=== PATIENT | female | born 1935 | race Caucasian/White ===

== ENCOUNTER 2018-08-29 11:07 | Outpatient (CLI) | payer MEDICARE ==
[~2018-08-29 11:07] MED LIST: FERUMOXYTOL (NON-ESRD) 510 MG/NS 100 ML IV PRN; NORMAL SALINE 250 ML IV PRN
[2018-08-29 11:36] VITALS: BP 132/47
== END 2018-08-29 12:47 | disposition home or self-care (01) ==
LOC: II 11:07 → 5TH 11:10 → II 12:47
PROVIDERS: ATTEND Internal Medicine Hematology & Oncology
PROC: 3E033GC Introduction of Other Therapeutic Substance into Peripheral Vein, Percutaneous Approach (ICD-10-PCS; principal; 2018-08-29)
DX: D50.9 Iron deficiency anemia, unspecified (principal); K90.9 Intestinal malabsorption, unspecified
CPT/HCPCS: 96367; Q0138; 96365

== ENCOUNTER 2018-09-05 10:58 | Outpatient (CLI) | payer MEDICARE ==
[2018-09-05 11:23] VITALS: BP 139/59
== END 2018-09-05 12:06 | disposition home or self-care (01) ==
LOC: II 10:58 → 5TH 10:59 → II 12:06
PROVIDERS: ATTEND Pediatrics Pediatric Cardiology
PROC: 3E033GC Introduction of Other Therapeutic Substance into Peripheral Vein, Percutaneous Approach (ICD-10-PCS; principal; 2018-09-05)
DX: D50.9 Iron deficiency anemia, unspecified (principal); K90.9 Intestinal malabsorption, unspecified
CPT/HCPCS: 96367; Q0138; 96365

== ENCOUNTER 2019-05-30 12:53 | Emergency (ER) | payer MEDICARE ==
[2019-05-30] MEDS ORDERED: ASPIRIN 81 MG TABLET, CHEWABLE PO ONE (14:22)
[2019-05-30 14:34] LABS: ABSOLUTE BASOPHILS # (AUTO) 0.1 10^3/uL (0.0-0.2); ABSOLUTE EOSINOPHILS # (AUTO) 0.2 10^3/uL (0.0-0.6); ABSOLUTE LYMPHOCYTES (AUTO) 1.2 10^3/uL (0.5-4.7); ABSOLUTE MONOCYTES (AUTO) 0.5 10^3/uL (0.1-1.4); ABSOLUTE NEUT (AUTO) 5.1 10^3/uL (1.7-8.2); BASOPHILS % (AUTO) 0.8 % (0-2); EOSINOPHILS % (AUTO) 2.3 % (0-6); HEMATOCRIT 39.7 % (36.0-47.0); HEMOGLOBIN 13.4 g/dL (12.0-15.5); LYMPHOCYTES % (AUTO) 17.2 % (13-45); MEAN CORPUSCULAR HEMOGLOBIN 29.5 pg (27.0-33.4); MEAN CORPUSCULAR HGB CONC 33.7 g/dL (32.0-36.0); MEAN CORPUSCULAR VOLUME 88 fl (80-97); MONOCYTES % (AUTO) 7.5 % (3-13); PLATELET COUNT 268 10^3/uL (150-450); RED BLOOD COUNT 4.54 10^6/uL (3.72-5.28); RED CELL DISTRIBUTION WIDTH 13.9 % (11.5-14.0); SEGMENTED NEUTROPHILS % (AUTO) 72.2 % (42-78); TOTAL CELLS COUNTED % (AUTO) 100 %
[2019-05-30] MEDS ORDERED: CLONAZEPAM 1 MG TABLET PO ONE (14:47)
[2019-05-30] MEDS ORDERED: DILTIAZEM HCL 90 MG TABLET PO ONE (14:48)
[2019-05-30 14:57] LABS: ALANINE AMINOTRANSFERASE 19 U/L (9-52); ALBUMIN 4.2 g/dL (3.5-5.0); ALKALINE PHOSPHATASE 67 U/L (38-126); ANION GAP 8 (5-19); ASPARTATE AMINO TRANSFERASE 32 U/L (14-36); BILIRUBIN,DIRECT 0.3 mg/dL (0.0-0.4); BILIRUBIN,TOTAL 0.3 mg/dL (0.2-1.3); BLOOD UREA NITROGEN 13 mg/dL (7-20); CALCIUM 9.1 mg/dL (8.4-10.2); CARBON DIOXIDE 26 mmol/L (22-30); CHLORIDE 102 mmol/L (98-107); CREATINE KINASE 168 U/L (30-135); GLUCOSE 91 mg/dL (75-110); POTASSIUM 4.7 mmol/L (3.6-5.0); TOTAL PROTEIN 7.1 g/dL (6.3-8.2)
[2019-05-30 15:05] LABS: INTERNATIONAL RATION (INR) 1.04; PROTHROMBIN TIME 13.6 SEC (11.4-15.4)
[2019-05-30 15:06] LABS: CREATINE KINASE MB 1.57 ng/mL (<4.55); PARTIAL THROMBOPLASTIN TIME 33.6 SEC (23.5-35.8)
[2019-05-30 15:10] LABS: TROPONIN I < 0.012 ng/mL
--- NOTE | 2019-05-30 15:28 | RADIOLOGY REPORT (SQ) ---
EXAM DESCRIPTION: CHEST SINGLE VIEW COMPLETED DATE/TIME: 05/30/2019 3:17 pm REASON FOR STUDY: sob COMPARISON: 07/02/2018 EXAM PARAMETERS: NUMBER OF VIEWS: One view. TECHNIQUE: Single frontal radiographic view of the chest acquired. RADIATION DOSE: NA LIMITATIONS: None. FINDINGS: LUNGS AND PLEURA: Emphysematous change with hyperinflation knee and chronic interstitial c hanges. No focal airspace disease, pleural effusion or pneumothorax. MEDIASTINUM AND HILAR STRUCTURES: No discrete mass. HEART AND VASCULAR STRUCTURES: Normal heart size. Ectatic atherosclerotic thoracic aorta. BONES: Decreased mineralization. No acute findings. HARDWARE: None in the chest. OTHER: Large hiatal hernia. IMPRESSION: Emphysematous change without evidence of acute cardiopulmonary process. Stable hiatal hernia. TECHNICAL DOCUMENTATION: JOB ID: [id number] [employer]- All Rights Reserved Reading location - IP/workstation name: [email or web address]
--- NOTE | 2019-05-30 15:31 | ER Document Report ---
ED Cardiac - General Chief Complaint: Palpitations Stated Complaint: CHEST DISCOMFORT Time Seen by Provider: 05/30/19 14:28 Primary Care Provider: LENARD BOX PA-C [Primary Care Provider] - Follow up as needed Notes: This is an 83-year-old female patient emerged department chief complaint of palpitations. Has been feeling this way for quite some time may be around a month or so. Feels like it is worse at night. Heart seems to be racing. Also tired and short of breath all the time. Denies any chest pain. Denies any ankle swelling. Does state that her feet get cold quite a bit. TRAVEL OUTSIDE OF THE [place] IN LAST 30 DAYS: No - HPI Patient complains to provider of: Palpitations, Shortness of breath Was the onset of pain: Gradual Is the pain a: New problem Quality of pain: None Severity now: Mild Severity at worst: Mild Pain level currently: Denies - Related Data Allergies/Adverse Reactions: codeine [Codeine] Allergy (Verified 05/30/19 12:54) Penicillins Allergy (Verified 05/30/19 12:54) Sulfa (Sulfonamide Antibiotics) Allergy (Verified 05/30/19 12:54) oxycodone Adverse Reaction (Verified 05/30/19 12:54) Past Medical History - General Information source: Patient - Social History Smoking Status: Never Smoker Chew tobacco use (# tins/day): No Frequency of alcohol use: None Drug Abuse: None Lives with: Family Family History: Reviewed & Not Pertinent Patient has suicidal ideation: No Patient has homicidal ideation: No - Past Medical History Cardiac Medical History: Denies: Hx Congestive Heart Failure, Hx Heart Attack, Hx Hypertension Pulmonary Medical History: Reports: Hx Asthma Denies: Hx COPD Neurological Medical History: Denies: Hx Cerebrovascular Accident, Hx Seizures Endocrine Medical History: Reports: Hx Hypothyroidism. Denies: Hx Diabetes Mellitus Type 1, Hx Diabetes Mellitus Type 2 Renal/ Medical History: Denies: Hx Peritoneal Dialysis GI Medical History: Reports: Hx Hiatal Hernia. Denies: Hx Hepatitis, Hx Ulcer Musculoskeletal Medical History: Reports Hx Arthritis Psychiatric Medical History: Reports: Hx Depression Infectious Medical History: Denies: Hx Hepatitis Past Surgical History: Reports: Hx Abdominal Surgery - colostomy, Hx Colostomy - Rectal perforation with colostomy, Hx Hysterectomy, Hx Tonsillectomy. Denies: Hx Mastectomy, Hx Open Heart Surgery, Hx Pacemaker Review of Systems - Review of Systems Notes: Constitutional: denies: Chills, Diaphoresis, Fever, Malaise, Weakness EENT: denies: Eye discharge, Blurred vision, Tearing, Double vision, Nose congestion, Nose discharge, Throat swelling, Mouth pain Cardiovascular: denies: Palpitations, +Heart racing, +Orthopnea,+ Dyspnea, - Chest pain Respiratory: denies: Cough, Hurts to breathe, Wheezing, Shortness of breath Gastrointestinal: denies: Abdominal pain, Diarrhea, Nausea, Vomiting, Black stools, bright red blood in stool Genitourinary: denies: Burning, Dysuria, Discharge, Frequency, Flank pain, Hematuria Musculoskeletal: denies: Joint pain, Joint swelling, Muscle pain, Muscle stiffness, back pain Hematologic/Lymphatic: denies: Anemia, Easy bleeding, Easy bruising, Blood clots Neurological/Psychological: denies: Confusion, Dementia, Depression, Loss of consciousness Skin: No lesions, no masses, no skin breakdown, no abscesses Physical Exam - Vital signs Vitals: Temp Pulse Resp BP Pulse Ox 97.5 F 47 L 18 137/95 H 93 05/30/19 13:30 05/30/19 13:30 05/30/19 13:30 05/30/19 13:30 05/30/19 13:30 Interpretation: Tachycardic - General General appearance: Appears well, Alert - HEENT Head: Normocephalic, Atraumatic Eyes: Normal Pupils: PERRL - Respiratory Respiratory status: No respiratory distress Chest status: Nontender Breath sounds: Normal Chest palpation: Normal - Cardiovascular Rhythm: Regular, Irregularly irregular, Tachycardia Heart sounds: Normal auscultation Murmur: No - Abdominal Inspection: Normal Distension: No distension Bowel sounds: Normal Tenderness: Nontender Organomegaly: No organomegaly - Back Back: Normal, Nontender - Extremities General upper extremity: Normal inspection, Nontender, Normal color, Normal ROM, Normal temperature General lower extremity: Normal inspection, Nontender, Normal color, Normal ROM, Normal temperature, Normal weight bearing. No: Janak's sign - Neurological Neuro grossly intact: Yes Cognition: Normal Orientation: AAOx4 [place] Coma Scale Eye Opening: Spontaneous Raymond Coma Scale Verbal: Oriented [place] Coma Scale Motor: Obeys Commands Raymond Coma Scale Total: 15 Speech: Normal Motor strength normal: LUE, RUE, LLE, RLE Sensory: Normal - Psychological Associated symptoms: Normal affect, Normal mood - Skin Skin Temperature: Warm Skin Moisture: Dry Skin Color: Normal Course - Re-evaluation Re-evalutation: 05/30/19 15:30 This well-appearing female with atrial fibrillation. States that she does not have A. fib however the record reveals that she is on Cardizem at home and has seen a lining stuffer, Dr. Beth some more likely she does have this history. Will check basic labs. She may need to be admitted but will see. 05/30/19 15:42 Patient apparently does have atrial fibrillation that she is currently taking diltiazem. Currently she does have slightly elevated BNP at 3000 but no overt signs of CHF. She has no lower extremity edema. No Pulmonary edema. I did speak with Dr. Beth with cardiology. He thinks that patient would be stable for an outpatient work-up as when she is resting her heart rates are in the 80s and 90s. He does recommend changing her to 180 twice a day of the Cardizem and putting on a small dose of Lasix. I am also going to talk to her primary care doctor just to make sure he is comfortable with this plan before discharging. 05/30/19 17:11 Laboratory 05/30/19 05/30/19 05/30/19 14:00 14:00 14:00 WBC 7.0 RBC 4.54 Hgb 13.4 Hct 39.7 MCV 88 MCH 29.5 MCHC 33.7 RDW 13.9 Plt Count 268 Seg Neutrophils % 72.2 Lymphocytes % 17.2 Monocytes % 7.5 Eosinophils % 2.3 Basophils % 0.8 Absolute Neutrophils 5.1 Absolute Lymphocytes 1.2 Absolute Monocytes 0.5 Absolute Eosinophils 0.2 Absolute Basophils 0.1 PT INR APTT Sodium 136.4 L Potassium 4.7 Chloride 102 Carbon Dioxide 26 Anion Gap 8 BUN 13 Creatinine 0.65 Est GFR ( Amer) > 60 Est GFR (Non-Af Amer) > 60 Glucose 91 Calcium 9.1 Total Bilirubin 0.3 Direct Bilirubin 0.3 Neonat Total Bilirubin Not Reportable Neonat Direct Bilirubin Not Reportable Neonat Indirect Bili Not Reportable AST 32 ALT 19 Alkaline Phosphatase 67 Creatine Kinase 168 H CK-MB (CK-2) 1.57 Troponin I < 0.012 NT-Pro-B Natriuret Pep Total Protein 7.1 Albumin 4.2 TSH 05/30/19 05/30/19 05/30/19 14:00 14:00 14:00 WBC RBC Hgb Hct MCV MCH MCHC RDW Plt Count Seg Neutrophils % Lymphocytes % Monocytes % Eosinophils % Basophils % Absolute Neutrophils Absolute Lymphocytes Absolute Monocytes Absolute Eosinophils Absolute Basophils PT 13.6 INR 1.04 APTT 33.6 Sodium Potassium Chloride Carbon Dioxide Anion Gap BUN Creatinine Est GFR ( Amer) Est GFR (Non-Af Amer) Glucose Calcium Total Bilirubin Direct Bilirubin Neonat Total Bilirubin Neonat Direct Bilirubin Neonat Indirect Bili AST ALT Alkaline Phosphatase Creatine Kinase CK-MB (CK-2) Troponin I NT-Pro-B Natriuret Pep 3610 H Total Protein Albumin TSH 3.15 Chest X-Ray 05/30/19 14:44 IMPRESSION: Emphysematous change without evidence of acute cardiopulmonary process. Stable hiatal hernia. Since rate is now much better controlled. Current heart rate of 72. An appointment has been arranged outpatient tomorrow at 9 AM with your primary care doctor who is going to get her into a lining stuffer as well. Most likely will be Dr. Ralph Molina with [facility] cardiology. If not Dr. Beth will also be willing to see her. She is comfortable this plan. Will change her to 180 twice daily on the Cardizem. 10 Lasix daily and DC at this time. - Vital Signs Vital signs: Temp Pulse Resp BP Pulse Ox 98.5 F 47 L 27 H 151/99 H 98 05/30/19 13:46 05/30/19 13:30 05/30/19 16:08 05/30/19 16:08 05/30/19 16:08 - Laboratory Result Diagrams: 05/30/19 14:00 05/30/19 14:00 Laboratory results interpreted by me: 05/30/19 05/30/19 14:00 14:00 Sodium 136.4 L Creatine Kinase 168 H NT-Pro-B Natriuret Pep 3610 H - EKG Interpretation by Me EKG shows normal: [place], Intervals, QRS Complexes, ST-T Waves Rhythm: Arrthymia Discharge - Discharge Clinical Impression: Atrial fibrillation Qualifiers: Atrial fibrillation type: chronic Qualified Code(s): I48.2 - Chronic atrial fibrillation Condition: Good Disposition: HOME, SELF-CARE Instructions: Atrial Fibrillation ([facility]) Prescriptions: Diltiazem HCl [Cardizem Cd 180 mg Capsule] 1 cap.sr PO Q12 30 Days #60 cap.sr Furosemide [Lasix] 10 mg PO DAILY 60 Days #30 tablet Referrals: LENARD BOX PA-C [Primary Care Provider] - 05/31/19 8:00 am
[2019-05-30] MEDS ORDERED: FUROSEMIDE 20 MG TABLET PO ONE (15:42)
[2019-05-30 17:21] LABS: APPEARANCE,URINE CLEAR; BILIRUBIN,URINE NEGATIVE (NEGATIVE); COLOR,URINE STRAW; GLUCOSE, URINE NEGATIVE (NEGATIVE); KETONES,URINE NEGATIVE (NEGATIVE); LEUKOCYTE ESTERASE,URINE NEGATIVE (NEGATIVE); NITRITE,URINE NEGATIVE (NEGATIVE); PROTEIN,URINE NEGATIVE (NEGATIVE); URINE SPECIFIC GRAVITY 1.004; UROBILINOGEN,URINE NEGATIVE mg/dL (<2.0)
[2019-05-30 17:22] VITALS: BP 118/61
--- NOTE | 2019-05-31 00:07 | EKG REPORT ---
SEVERITY:- ABNORMAL ECG - ATRIAL FIBRILLATION, V-RATE 85-101 RIGHT AXIS DEVIATION : Confirmed by: Josefina Kelly 31-May-2019 00:06:16
== END 2019-05-30 17:37 | disposition home or self-care (01) ==
LOC: ER 12:53
DX: I48.2 Chronic atrial fibrillation (principal); Z79.899 Other long term (current) drug therapy; R00.2 Palpitations; R00.0 Tachycardia, unspecified; K44.9 Diaphragmatic hernia without obstruction or gangrene; J45.909 Unspecified asthma, uncomplicated; R06.02 Shortness of breath; R53.83 Other fatigue; Z88.5 Allergy status to narcotic agent; Z88.0 Allergy status to penicillin; Z88.2 Allergy status to sulfonamides
CPT/HCPCS: 93005; 99285; 36415; 87086; 82553; 82550; 84443; 85025; 85610; 85730; 80053; 81001; 84484; 83880; 71045; 93010; A9270 ×4; J3490

== ENCOUNTER → 2019-10-16 | Outpatient (CLI) | payer MEDICARE ==
--- NOTE | 2019-10-16 14:21 | WOMENS IMAGING REPORT ---
EXAM DESCRIPTION: BONE DENSITY HIP/SPINE COMPLETED DATE/TIME: 10/16/2019 2:10 pm REASON FOR STUDY: M81.0 BONE DENSITY M81.0 AGE-RELATED OSTEOPOROSIS W/O CURRENT PATHOLOGICAL FRAC COMPARISON: None. TECHNIQUE: Dual-Energy X-ray Absorptiometry (DEXA) of the AP Spine and Hip. LIMITATIONS: None. FINDINGS: LUMBAR SPINE: The bone mineral density (BMD) measured from L1-L4 in the AP projection correlates with a T-score of -0.6, which is normal as defined by the World Health Organization. Please note that this does includ e sclerosis at the vertebral body endplates and posterior elements related to scoliosis BMD Change vs Baseline: N/A HIP: The bone mineral density (BMD) measured in the left femoral neck at the hip correlates with a T-score of -1.6, which is osteopenic as defined by the World Health Organization. BMD Change vs Baseline: N/A 10 year Fracture Risk Assessment: Major Osteoporotic Fracture: 10% Hip Fracture: 3.1% IMPRESSION: 1. LUMBAR SPINE WHO CLASSIFICATION: Normal 2. HIP WHO CLASSIFICATION: Osteopenic OVERALL ASSESSMENT: WHO CLASSIFICATION: Osteopenic COMMENT: The World Health Organization defines low BMD as follows: T-score: Normal: Greater than -1.0 Osteopenia: Between -1.0 and -2.5 Osteoporosis: Less than -2.5 without fractures Established osteoporosis: Less than -2.5 with fractures In general, you may wish to consider: Diagnosis Treatment Follow-up DEXA Normal BMD Prevention 2-3 years Osteopenia Prevention/Therapy 1-2 years Osteoporosis Therapy Yearly TECHNICAL DOCUMENTATION: JOB ID: [id number] [employer]- All Rights Reserved Reading location - IP/workstation name: [email or web address]
== END ==
LOC: WI 13:40
PROVIDERS: ATTEND Nurse Practitioner Family
DX: M81.0 Age-related osteoporosis without current pathological fracture (principal)
CPT/HCPCS: 77080

== ENCOUNTER 2020-01-18 12:42 | Outpatient (CLI) | payer MEDICARE ==
[2020-01-18 13:19] VITALS: BP 117/57
== END 2020-01-18 13:59 | disposition home or self-care (01) ==
LOC: II 12:42 → 5TH 12:46 → II 13:59
PROVIDERS: ATTEND Internal Medicine Hematology & Oncology
DX: D50.9 Iron deficiency anemia, unspecified (principal); K90.9 Intestinal malabsorption, unspecified
CPT/HCPCS: 96365; Q0138; J7050

== ENCOUNTER 2020-07-11 05:42 | Emergency (ER) | payer MEDICARE ==
[2020-07-11 06:33] LABS: ABSOLUTE BASOPHILS # (AUTO) 0.1 10^3/uL (0.0-0.2); ABSOLUTE EOSINOPHILS # (AUTO) 0.3 10^3/uL (0.0-0.6); ABSOLUTE LYMPHOCYTES (AUTO) 0.9 10^3/uL (0.5-4.7); ABSOLUTE MONOCYTES (AUTO) 0.7 10^3/uL (0.1-1.4); ABSOLUTE NEUT (AUTO) 7.4 10^3/uL (1.7-8.2); BASOPHILS % (AUTO) 0.6 % (0-2); EOSINOPHILS % (AUTO) 2.7 % (0-6); HEMATOCRIT 41.2 % (36.0-47.0); HEMOGLOBIN 13.7 g/dL (12.0-15.5); LYMPHOCYTES % (AUTO) 9.3 % (13-45); MEAN CORPUSCULAR HEMOGLOBIN 29.1 pg (27.0-33.4); MEAN CORPUSCULAR HGB CONC 33.4 g/dL (32.0-36.0); MEAN CORPUSCULAR VOLUME 87 fl (80-97); MONOCYTES % (AUTO) 7.8 % (3-13); PLATELET COUNT 249 10^3/uL (150-450); RED BLOOD COUNT 4.72 10^6/uL (3.72-5.28); SEGMENTED NEUTROPHILS % (AUTO) 79.6 % (42-78); TOTAL CELLS COUNTED % (AUTO) 100 %; WHITE BLOOD COUNT 9.3 10^3/uL (4.0-10.5)
[2020-07-11 06:55] LABS: ALBUMIN 4.5 g/dL (3.5-5.0); ALKALINE PHOSPHATASE 74 U/L (38-126); ANION GAP 9 (5-19); ASPARTATE AMINO TRANSFERASE 23 U/L (14-36); BILIRUBIN,DIRECT 0.3 mg/dL (0.0-0.4); BILIRUBIN,TOTAL 0.6 mg/dL (0.2-1.3); BLOOD UREA NITROGEN 16 mg/dL (7-20); CALCIUM 9.2 mg/dL (8.4-10.2); CARBON DIOXIDE 27 mmol/L (22-30); CHLORIDE 102 mmol/L (98-107); CREATINE KINASE 254 U/L (30-135); GLUCOSE 106 mg/dL (75-110); POTASSIUM 4.4 mmol/L (3.6-5.0); TOTAL PROTEIN 7.8 g/dL (6.3-8.2)
[2020-07-11 07:07] LABS: CREATINE KINASE MB 1.44 ng/mL (<4.55)
[2020-07-11 07:11] LABS: TROPONIN I < 0.012 ng/mL
[2020-07-11 09:52] LABS: APPEARANCE,URINE CLEAR; BILIRUBIN,URINE NEGATIVE (NEGATIVE); COLOR,URINE YELLOW; GLUCOSE, URINE NEGATIVE (NEGATIVE); KETONES,URINE NEGATIVE (NEGATIVE); LEUKOCYTE ESTERASE,URINE LARGE (NEGATIVE); NITRITE,URINE NEGATIVE (NEGATIVE); PROTEIN,URINE NEGATIVE (NEGATIVE); URINE SPECIFIC GRAVITY 1.009; UROBILINOGEN,URINE NEGATIVE mg/dL (<2.0)
[2020-07-11] MEDS ORDERED: ACETAMINOPHEN 325 MG TABLET PO ONE (10:30)
[2020-07-11] MEDS ORDERED: NITROFURANTOIN MONOHYD/M-CRYST 100 MG CAPSULE PO ONE (10:30)
--- NOTE | 2020-07-11 10:37 | ER Document Report ---
ED General - General Chief Complaint: Flank Pain Stated Complaint: FLANK PAIN Time Seen by Provider: 07/11/20 10:11 Primary Care Provider: JAYDON BLUM PA-C [Primary Care Provider] - Follow up as needed TRAVEL OUTSIDE OF THE [place] IN LAST 30 DAYS: No - HPI Notes: Chief complaint: Right flank discomfort History of present illness: 84-year-old female followed by Dr. Jaydon Blum with history of chronic anemia secondary to past GI blood loss and remote history of rectal perforation requiring a colostomy presents now with 5 days intermittent history of right flank discomfort. She notices most when she goes to sleep at night and says that she is tossed and turned some at night with discomfort in that area. Mild nausea without vomiting. She is felt slightly chilled and took a dose of Tylenol 2 nights ago with good relief of her discomfort but noticed that she had some mild sweating afterwards. She notes her urine has been slightly cloudy and she has had some mild dysuria. - Related Data Allergies/Adverse Reactions: codeine [Codeine] Allergy (Verified 05/30/19 12:54) Penicillins Allergy (Verified 05/30/19 12:54) Sulfa (Sulfonamide Antibiotics) Allergy (Verified 05/30/19 12:54) oxycodone Adverse Reaction (Verified 05/30/19 12:54) Past Medical History - General Information source: Patient, Relative - Social History Smoking Status: Never Smoker Chew tobacco use (# tins/day): No Frequency of alcohol use: None Drug Abuse: None Lives with: Family Family History: Reviewed & Not Pertinent - Past Medical History Cardiac Medical History: Reports: Hx Atrial Fibrillation Denies: Hx Congestive Heart Failure, Hx Heart Attack, Hx Hypertension Pulmonary Medical History: Reports: Hx Asthma Denies: Hx COPD Neurological Medical History: Denies: Hx Cerebrovascular Accident, Hx Seizures Endocrine Medical History: Reports: Hx Hypothyroidism. Denies: Hx Diabetes Mellitus Type 1, Hx Diabetes Mellitus Type 2 Renal/ Medical History: Denies: Hx Peritoneal Dialysis GI Medical History: Reports: Hx Gastritis, Hx Hiatal Hernia, Other - Colostomy due to rectal perforation. Denies: Hx Hepatitis, Hx Ulcer Musculoskeletal Medical History: Reports Hx Arthritis Psychiatric Medical History: Reports: Hx Depression Infectious Medical History: Denies: Hx Hepatitis Past Surgical History: Reports: Hx Abdominal Surgery - colostomy, Hx Colostomy - Rectal perforation with colostomy, Hx Hysterectomy, Hx Tonsillectomy. Denies: Hx Mastectomy, Hx Open Heart Surgery, Hx Pacemaker Review of Systems - Review of Systems Notes: Constitutional: As per HPI. HENT: Negative for sore throat. Eyes: Negative for visual changes. Cardiovascular: Negative for chest pain. Respiratory: Negative for shortness of breath. Gastrointestinal: As per HPI. Genitourinary: As per HPI. Musculoskeletal: As per HPI. Skin: Negative for rash. Neurological: Negative for headaches, weakness or numbness. 10 point ROS negative except as marked above and in HPI. Physical Exam - Vital signs Vitals: Temp Pulse Resp BP Pulse Ox 97.7 F 57 L 17 141/95 H 96 07/11/20 05:49 07/11/20 05:49 07/11/20 05:49 07/11/20 05:49 07/11/20 05:49 - Notes Notes: GENERAL: Elderly female appearing nontoxic in mild discomfort. SKIN: Good turgor no rashes. HEAD: Scalp alopecia wearing a wig. Normocephalic atraumatic. EYES: Bilateral arcus senilis. PERRLA. EOMI. Conjunctivae and sclerae clear. EARS: CANALS AND TMS CLEAR. NOSE: CLEAR. MOUTH: Moist mucosa. Good dentition. No stridor or edema. No drooling. NECK: Supple. No masses or thyromegaly. No adenopathy. Carotids 2+ without bruits. No JVD. BACK: Symmetrical without tenderness. CHEST: Respirations unlabored. Breath sounds clear and symmetrical. HEART: Irregularly irregular rhythm. No murmur gallop or rub. ABDOMEN: Mild tenderness on deep palpation right upper quadrant accentuated with deep inspiration. Soft without masses, organomegaly or rebound. Bowel sounds normally active. No bruits. GENITALIA: Deferred. EXTREMITIES: Advanced degenerative changes intra-phalangeal joints both hands. No edema. No calf tenderness. Cap refill less than 1.5 seconds. Dorsalis pedis and posterior tibial pulses 3+ and symmetrical. NEUROLOGICAL: GCS 15. Alert and oriented x3. Fluent speech. Cranial nerves II through XII intact. Sensorimotor and cerebellar normal. Normal tone. PSYCHIATRIC: Appropriate affect. Course - Re-evaluation Re-evalutation: 07/11/20 10:42 Patient has significant pyuria and leukocyte esterase on urinalysis. She is afebrile here. Her white count is normal. Her chemistry profile is unremarkable. Her troponin is normal. Her EKG shows pre-existing chronic atrial fibrillation with controlled ventricular rate. Physical findings are consistent with urinary tract infection. Patient is given oral acetaminophen here as well as a dose of Macrobid orally. She appears stable for outpatient management. Findings, clinical impression and plan of treatment have been discussed with patient/family. Understanding of current findings and recommendations has been acknowledged by them and there is agreement regarding disposition and follow-up. - Vital Signs Vital signs: Temp Pulse Resp BP Pulse Ox 97.6 F 97 18 135/89 H 96 07/11/20 09:37 07/11/20 09:37 07/11/20 09:37 07/11/20 09:37 07/11/20 09:37 - Laboratory Result Diagrams: 07/11/20 06:16 07/11/20 06:16 Laboratory results interpreted by me: 07/11/20 07/11/20 07/11/20 06:16 06:16 09:17 Lymph % (Auto) 9.3 L Seg Neutrophils % 79.6 H Creatine Kinase 254 H Urine Blood SMALL H Ur Leukocyte Esterase LARGE H - EKG Interpretation by Me Additional EKG results interpreted by me: 07/11/20 10:37 Twelve-lead EKG from 0607 hrs. reviewed contemporaneously by me demonstrating atrial fibrillation with a ventricular rate of 87. She has a right axis deviation of 103 degrees. Intervals are normal. There are no acute ST/T wave changes. Comparison with prior tracing of 05/30/2019 shows no significant interval change. Indication for current study: Right upper abdominal pain. Impression chronic atrial fibrillation with controlled ventricular rate. Discharge - Discharge Clinical Impression: Urinary tract infection Condition: Stable Disposition: HOME, SELF-CARE Additional Instructions: Take prescribed medication. You may also take Tylenol 500 mg 2 tablets every 4- 6 hours as needed for pain. Increase oral fluids. Return here as needed for new or worsening symptoms: Pain that is worsening or unimproved Uncontrolled vomiting High fever or shaking chills Overall worsening See your primary care provider for a repeat urinalysis next week. Prescriptions: Nitrofurantoin Monohyd/M-Cryst [Macrobid 100 mg Capsule] 100 mg PO BID 10 Days #20 cap Referrals: JAYDON BLUM PA-C [Primary Care Provider] - Follow up as needed
[2020-07-11 11:00] VITALS: BP 136/90
--- NOTE | 2020-07-11 15:36 | EKG REPORT ---
SEVERITY:- ABNORMAL ECG - AFIB/FLUT RIGHT AXIS DEVIATION CONSIDER OLD LATERAL OR (Q WAVES I AND AVL) : Confirmed by: Jack Colmenares MD 11-Jul-2020 15:35:41
--- NOTE | 2020-07-11 17:52 | RADIOLOGY REPORT (SQ) ---
EXAM DESCRIPTION: [facility]: XR CHEST 1 VIEW CLINICAL HISTORY: 84 years Female; right flank pain; COMPARISON: None. 05/30/2019 FINDINGS: Lungs: Hyperinflated as on prior exam. Mild biapical scarring is again noted. No focal acute infiltrates. No pneumothorax or pleural effusion. Mediastinum: Hiatal hernia is again noted. No superior mediastinal widening or shift. Bones: Bony structures are unremarkable. IMPRESSION: 1. No acute pulmonary findings. 2. Chronic changes suggesting COPD 3. Hiatal hernia
== END 2020-07-11 10:58 | disposition home or self-care (01) ==
LOC: ER 05:42
DX: N39.0 Urinary tract infection, site not specified (principal); R10.9 Unspecified abdominal pain; R11.0 Nausea; R30.0 Dysuria; Z79.899 Other long term (current) drug therapy; Z88.0 Allergy status to penicillin; Z88.2 Allergy status to sulfonamides; Z88.8 Allergy status to other drugs, medicaments and biological substances; J45.909 Unspecified asthma, uncomplicated
CPT/HCPCS: 93005; 99285; 36415; 82553; 82550; 85025; 80053; 81001; 84484; 71045; 93010; A9270 ×2; J8499

== ENCOUNTER 2020-07-11 23:22 | Emergency (ER) | payer MEDICARE ==
[2020-07-11 23:59] VITALS: BP 143/88
[2020-07-12] MEDS ORDERED: KETOROLAC TROMETHAMINE INJ/PF 30 MG/1 ML SDV IV ONE (00:28)
[2020-07-12] MEDS ORDERED: ONDANSETRON HCL INJ/PF 4 MG/2 ML SDV IV ONE (02:03)
[2020-07-12] MEDS ORDERED: MORPHINE SULFATE 10 MG/ML INJ IV ONE (02:03)
[2020-07-12 02:27] LABS: ABSOLUTE BASOPHILS # (AUTO) 0.1 10^3/uL (0.0-0.2); ABSOLUTE EOSINOPHILS # (AUTO) 0.1 10^3/uL (0.0-0.6); ABSOLUTE LYMPHOCYTES (AUTO) 0.7 10^3/uL (0.5-4.7); ABSOLUTE MONOCYTES (AUTO) 0.7 10^3/uL (0.1-1.4); ABSOLUTE NEUT (AUTO) 8.7 10^3/uL (1.7-8.2); BASOPHILS % (AUTO) 0.8 % (0-2); EOSINOPHILS % (AUTO) 1.1 % (0-6); HEMATOCRIT 38.7 % (36.0-47.0); HEMOGLOBIN 12.8 g/dL (12.0-15.5); LYMPHOCYTES % (AUTO) 6.4 % (13-45); MEAN CORPUSCULAR HEMOGLOBIN 28.8 pg (27.0-33.4); MEAN CORPUSCULAR HGB CONC 33.1 g/dL (32.0-36.0); MEAN CORPUSCULAR VOLUME 87 fl (80-97); MONOCYTES % (AUTO) 6.7 % (3-13); PLATELET COUNT 223 10^3/uL (150-450); RED BLOOD COUNT 4.45 10^6/uL (3.72-5.28); RED CELL DISTRIBUTION WIDTH 14.1 % (11.5-14.0); TOTAL CELLS COUNTED % (AUTO) 100 %; WHITE BLOOD COUNT 10.3 10^3/uL (4.0-10.5)
[2020-07-12 02:38] LABS: ALBUMIN 4.1 g/dL (3.5-5.0); ALKALINE PHOSPHATASE 77 U/L (38-126); ANION GAP 9 (5-19); ASPARTATE AMINO TRANSFERASE 25 U/L (14-36); BILIRUBIN,DIRECT 0.4 mg/dL (0.0-0.4); BILIRUBIN,TOTAL 0.7 mg/dL (0.2-1.3); BLOOD UREA NITROGEN 15 mg/dL (7-20); CALCIUM 9.1 mg/dL (8.4-10.2); CARBON DIOXIDE 28 mmol/L (22-30); CHLORIDE 96 mmol/L (98-107); GLUCOSE 117 mg/dL (75-110); POTASSIUM 5.2 mmol/L (3.6-5.0); TOTAL PROTEIN 7.2 g/dL (6.3-8.2)
[2020-07-12 02:49] LABS: APPEARANCE,URINE CLEAR; BILIRUBIN,URINE NEGATIVE (NEGATIVE); COLOR,URINE YELLOW; GLUCOSE, URINE NEGATIVE (NEGATIVE); KETONES,URINE NEGATIVE (NEGATIVE); LEUKOCYTE ESTERASE,URINE TRACE (NEGATIVE); NITRITE,URINE NEGATIVE (NEGATIVE); PROTEIN,URINE NEGATIVE (NEGATIVE); URINE SPECIFIC GRAVITY 1.006; UROBILINOGEN,URINE NEGATIVE mg/dL (<2.0)
--- NOTE | 2020-07-12 03:30 | RADIOLOGY REPORT (SQ) ---
EXAM DESCRIPTION: CT ABDOMEN PELVIS WITH IV CONTRAST COMPLETED DATE/TME: 07/12/2020 02:05 CLINICAL HISTORY: right sided abd/flank pain COMPARISON: 03/10/2011 TECHNIQUE: CT of the abdomen and pelvis performed following IV administration of 62 mL Omnipaque 350. FINDINGS: Lung Bases: Bibasilar atelectasis and right pleural effusion. Cardiomegaly with likely biatrial enlargement. Bones: Degenerative endplate spondylosis, disc height narrowing, and facet arthropathy throughout the spine. Scoliosis of the thoracolumbar spine. Degenerative change of the hips. Abdomen: Liver: The liver has normal size and density. No intrahepatic biliary dilatation. Gallbladder: No calcified gallstones. Spleen, Pancreas, and Adrenal Glands: The spleen, pancreas, and adrenal glands are unremarkable. Kidneys: No hydronephrosis or obstructing calculus. Vasculature: Aortoiliac atherosclerosis. IVC is unremarkable. The portal vein is patent. The proximal visceral and renal arteries are patent. Stomach: Organoaxial volvulus of the stomach within the large hiatal hernia without evidence of obstruction at this time. This is stable in configuration. Other: No free intraperitoneal air. No free fluid or lymphadenopathy. Pelvis: Bladder: Urinary bladder is unremarkable. Bowel: No dilated loops of large or small bowel. Left ventral ostomy. Scattered diverticula of the colon. Appendix: The appendix is not identified. Pelvis: Prior left ventral hernia repair. Uterus is not enlarged. IMPRESSION: 1. No acute inflammatory or obstructive process identified. 2. Large hiatal hernia with mechanical axial volvulus of the stomach without evidence of obstruction. Findings are nonsignificantly changed from 03/10/2011. 3. Diverticulosis without evidence of acute diverticulitis. 4. Small right pleural effusion and bibasilar atelectasis. This exam was performed according to our departmental dose-optimization program, which includes automated exposure control, adjustment of the mA and/or kV according to patient size and/or use of iterative reconstruction technique.
--- NOTE | 2020-07-12 03:39 | ER Document Report ---
ED GI/ - General Chief Complaint: Flank Pain Stated Complaint: FLANK PAIN Time Seen by Provider: 07/12/20 01:40 Primary Care Provider: LENARD BOX PA-C [Primary Care Provider] - 07/14/20 Notes: Patient is an 84-year-old female that comes the emergency department for chief complaint of right sided and right upper abdominal pain, right flank pain, nausea. She denies vomiting, chest pain, shortness of breath, fever, dysuria, injury. Patient also has some pain with deep breathing. She denies chest pain specifically though. Patient seen earlier today and had a work-up including EKG, troponin, chest x-ray, laboratory work-up, urinalysis. She was diagnosed with a likely kidney infection, given antibiotics, states she took initial dose of antibiotics after discharge but pain worsened so she returned. Patient denies history of kidney stones. Patient has had a colostomy after perforated bowel many years ago, has had a hysterectomy, denies abdominal surgeries otherwise. She denies any cardiac or pulmonary history. Only other reported medical history is asthma. Daughter is at bedside. TRAVEL OUTSIDE OF THE [place] IN LAST 30 DAYS: No - Related Data Allergies/Adverse Reactions: codeine [Codeine] Allergy (Verified 05/30/19 12:54) Penicillins Allergy (Verified 05/30/19 12:54) Sulfa (Sulfonamide Antibiotics) Allergy (Verified 05/30/19 12:54) oxycodone Adverse Reaction (Verified 05/30/19 12:54) Past Medical History - General Information source: Patient - Social History Smoking Status: Never Smoker Chew tobacco use (# tins/day): No Frequency of alcohol use: None Drug Abuse: None Lives with: Family Family History: Reviewed & Not Pertinent - Past Medical History Cardiac Medical History: Reports: Hx Atrial Fibrillation Denies: Hx Congestive Heart Failure, Hx Heart Attack, Hx Hypertension Pulmonary Medical History: Reports: Hx Asthma Denies: Hx COPD Neurological Medical History: Denies: Hx Cerebrovascular Accident, Hx Seizures Endocrine Medical History: Reports: Hx Hypothyroidism. Denies: Hx Diabetes Mellitus Type 1, Hx Diabetes Mellitus Type 2 Renal/ Medical History: Denies: Hx Peritoneal Dialysis GI Medical History: Reports: Hx Gastritis, Hx Hiatal Hernia. Denies: Hx Hepatitis, Hx Ulcer Musculoskeletal Medical History: Reports Hx Arthritis Psychiatric Medical History: Reports: Hx Depression Infectious Medical History: Denies: Hx Hepatitis Past Surgical History: Reports: Hx Abdominal Surgery - colostomy, Hx Colostomy - Rectal perforation with colostomy, Hx Hysterectomy, Hx Tonsillectomy. Denies: Hx Mastectomy, Hx Open Heart Surgery, Hx Pacemaker - Immunizations Hx Diphtheria, Pertussis, Tetanus Vaccination: Yes Review of Systems - Review of Systems Constitutional: No symptoms reported EENT: No symptoms reported Cardiovascular: No symptoms reported Respiratory: See HPI Gastrointestinal: See HPI Genitourinary: No symptoms reported Female Genitourinary: No symptoms reported Musculoskeletal: No symptoms reported Skin: No symptoms reported Hematologic/Lymphatic: No symptoms reported Neurological/Psychological: No symptoms reported Physical Exam - Vital signs Vitals: Temp Pulse Resp BP Pulse Ox 98.2 F 86 18 143/88 H 95 07/11/20 23:57 07/11/20 23:57 07/11/20 23:57 07/11/20 23:57 07/11/20 23:57 - Notes Notes: GENERAL: Alert, interacts well. No acute distress. HEAD: Normocephalic, atraumatic. EYES: Pupils equal, round, and reactive to light. Extraocular movements intact. ENT: Oral mucosa moist, tongue midline. Oropharynx unremarkable. Airway patent. NECK: Full range of motion. Supple. Trachea midline. No lymphadenopathy. LUNGS: Clear to auscultation bilaterally, no wheezes, rales, or rhonchi. No resp iratory distress. Non-tender chest wall. Some pleuritic pain with deep breaths in the right lower ribs. HEART: Regular rate and rhythm. No murmur ABDOMEN: There is some tenderness in the right upper quadrant and underneath the right ribs generally, no overt tenderness over the right ribs, no signs of trauma, otherwise unremarkable. GENITOURINARY: Deferred EXTREMITIES: Moves all 4 extremities spontaneously. No edema, normal radial and dorsalis pedis pulses bilaterally. No cyanosis. BACK: No CVA tenderness. No cervical, thoracic, lumbar midline tenderness. No saddle anesthesia, normal distal neurovascular exam. Moves all extremities in full range of motion. NEUROLOGICAL: Alert and oriented x3. Normal speech. Cranial nerves II through XII grossly intact. Strength 5/5 in all extremities. PSYCH: Normal affect, normal mood. SKIN: Warm, dry, normal turgor. No rashes or lesions noted. Course - Re-evaluation Re-evalutation: Patient is alert, completely oriented, cooperative, well appearing. Patient has right upper quadrant pain and pleuritic pain with deep breaths. No tachycardia, hypoxia, shortness of breath, chest pain, or fever. No vomiting. CBC nonspecific, chemistry unremarkable, urine significantly improved from prior. CT with no acute findings, shows large hiatal hernia without significant change from prior. There is a small pleural effusion on the right side. Patient appears to have a gallbladder illness although this is nonspecific, patient states she thought she had a cholecystectomy but she is uncertain. I discussed patient with Dr. Garcia. He recommends right upper quadrant ultrasound. This was normal. Urinalysis significantly improved from prior. Discussed with patient in detail. Patient states she has frequent irritated coughing, most likely from the hiatal hernia based on discussion with daughter and patient's history. Discussed with Dr. Garcia, recommends discharge with follow-up and return precautions at this point. Patient is requesting something for pain, provided with low-dose [place] after discussing options and precautions. They state appreciation and agreement. Stable and well-appearing at time of discharge. - Vital Signs Vital signs: Temp Pulse Resp BP Pulse Ox 98.2 F 86 18 143/88 H 95 07/11/20 23:57 07/11/20 23:57 07/11/20 23:57 07/11/20 23:57 07/11/20 23:57 - Laboratory Result Diagrams: 07/12/20 02:08 07/12/20 02:08 Laboratory results interpreted by me: 07/12/20 07/12/20 07/12/20 02:05 02:08 02:08 RDW 14.1 H Lymph % (Auto) 6.4 L Absolute Neuts (auto) 8.7 H Seg Neutrophils % 85.0 H Sodium 133.2 L Potassium 5.2 H Chloride 96 L Glucose 117 H Urine Blood SMALL H Ur Leukocyte Esterase TRACE H Discharge - Discharge Clinical Impression: Right upper quadrant abdominal pain, Pleuritic pain Condition: Stable Disposition: HOME, SELF-CARE Additional Instructions: The urinary tract is significantly improved, complete the antibiotics as prescribed. Based on your symptoms and overall work-up I suspect that you have pleurisy causing your pain. Follow-up with primary care for additional management of this. Your symptoms should simply resolve with time. You can take the prescribed medication for pain/cough, if you do so make sure you take your stool softener to avoid constipation. Return if you worsen including severe worsening pain, fever, difficulty breathing, or any other concerning or worsening symptoms. Prescriptions: Hydrocodone/Acetaminophen [[place] 5-325 mg Tablet] 0.5 - 1 tab PO Q6H PRN #12 tablet PRN Reason: Referrals: LENARD BOX PA-C [Primary Care Provider] - 07/14/20
--- NOTE | 2020-07-12 04:52 | RADIOLOGY REPORT (SQ) ---
Ultrasound of the right upper quadrant of the abdomen: 07/12/2020 3:49 AM CDT Technique: Multiple grayscale color Doppler images of the right upper quadrant of the abdomen were obtained. Comparison: CT of abdomen and pelvis from 07/12/2020 History: 84-year old patient with right upper quadrant abdominal pain. Findings: The visualized portions of the hepatic parenchyma appear normal. There is normal directional flow seen within the main portal vein. The gallbladder is surgically absent. The common duct measures 6-7 mm. The right kidney measures up to 9.0 cm in length. The right kidney demonstrates normal cortical echogenicity with no evidence to suggest hydronephrosis. The visualized portions of the IVC, abdominal aorta, and pancreatic head appear normal. No free intraperitoneal fluid is seen. There is a trace right pleural effusion present. Impression: The gallbladder surgically absent. The common duct is within normal limits of size.
[2020-07-12] MEDS ORDERED: HYDROCODONE/ACETAMINOPHEN 5-325 MG (6 TAB/ER DISP) PO PRN (05:22)
== END 2020-07-12 06:00 | disposition home or self-care (01) ==
LOC: ER 23:22
DX: R10.11 Right upper quadrant pain (principal); R07.81 Pleurodynia; R11.0 Nausea; Z93.3 Colostomy status; Z88.0 Allergy status to penicillin; Z88.8 Allergy status to other drugs, medicaments and biological substances; Z88.2 Allergy status to sulfonamides; I48.91 Unspecified atrial fibrillation; J45.909 Unspecified asthma, uncomplicated
CPT/HCPCS: 99285; 96374; 96375; 36415; 83690; 85025; 80053; 81001; 76705; 74177; J1885; J2270; J2405; A9270

== ENCOUNTER → 2020-11-08 | Outpatient (CLI) | payer MEDICARE ==
[2020-11-08 15:53] VITALS: BP 116/58
--- NOTE | 2020-11-08 15:53 | ER RDC ASSESSMENT REPORT ---
Intake - In the Last 14 days Have you traveled outside [place]?: No Have you been in close contact with someone CONFIRMED: No Worked in Healthcare?: No - Symptoms Subjective Fever([place] feverish): No Chills: No Muscule Aches: No Runny Nose: No Sore Throat: Yes Cough (New or worsening chronic cough): Yes Shortness of breath: No Nausea or Vomiting: No Headache: No Abdominal Pain: No Diarrhea(3 or more loose stools in last 24 hours): No - Do you have any of the following Chronic lung disease: Asthma or emphysema or COPD: Yes Chronic Lung Disease Comment: Patient reports history of asthma. Cystic Fibrosis: No Diabetes: No High Blood Pressure: No Cardiovascular Disease: Yes Cardiovascular Disease Comment: Patient reports history of A. fib. Chronic Kidney Disease: No Chronic Liver Disease: No Chronic blood disorder like Sickle Cell Disease: No Weak immune system due to disease or medication: No Neurologic condition that limits movement: No Developmental delay - Moderate to Severe: No Recent (within past 2 weeks) or current : No Morbid Obesity (>100 pounds over ideal weight): No - Objective Temperature: 98.3 F Pulse Rate: 90 Respiratory Rate: 17 Blood Pressure: 116/58 O2 Sat by Pulse Oximetry: 95 Objective: Patient is a well-appearing 85-year-old female, who presents today for COVID-19 screening. Disposition: Home; Selfcare General - General Stated Complaint: Upper respiratory symptoms Mode of Arrival: Ambulatory Information source: Patient Notes: The patient was evaluated during the global COVID-19 pandemic. That diagnosis was suspected/considered upon initial presentation. Their evaluation, treatment, and testing was consistent with current guidelines for patients who present with complaints or symptoms that may be related to COVID-19. - HPI Patient complains to provider of: Upper respiratory symptoms Onset: Last week Onset/Duration: Persistent Quality of pain: No pain Severity: None Pain Level: Denies Associated symptoms: Nonproductive cough, Sore throat, Other - Loss of sense of taste and smell. Exacerbated by: Denies Relieved by: Denies Similar symptoms previously: No Recently seen / treated by doctor: No - Related Data Allergies/Adverse Reactions: codeine [Codeine] Allergy (Verified 05/30/19 12:54) Penicillins Allergy (Verified 05/30/19 12:54) Sulfa (Sulfonamide Antibiotics) Allergy (Verified 05/30/19 12:54) oxycodone Adverse Reaction (Verified 05/30/19 12:54) Past Medical History - General Information source: Patient - Social History Smoking Status: Never Smoker Cigarette use (# per day): No Chew tobacco use (# tins/day): No Smoking Education Provided: No Frequency of alcohol use: Occasional Drug Abuse: None Occupation: Retired Lives with: Family Family History: Reviewed & Not Pertinent Patient has suicidal ideation: No Patient has homicidal ideation: No - Past Medical History Cardiac Medical History: Reports: Hx Atrial Fibrillation Denies: Hx Congestive Heart Failure, Hx Heart Attack, Hx Hypertension Pulmonary Medical History: Reports: Hx Asthma Denies: Hx COPD Neurological Medical History: Denies: Hx Cerebrovascular Accident, Hx Seizures Endocrine Medical History: Reports: Hx Hypothyroidism. Denies: Hx Diabetes Mellitus Type 1, Hx Diabetes Mellitus Type 2 Renal/ Medical History: Denies: Hx Peritoneal Dialysis GI Medical History: Reports: Hx Gastritis, Hx Hiatal Hernia. Denies: Hx Hepatitis, Hx Ulcer Musculoskeletal Medical History: Reports Hx Arthritis Psychiatric Medical History: Reports: Hx Depression Infectious Medical History: Denies: Hx Hepatitis Past Surgical History: Reports: Hx Abdominal Surgery - colostomy, Hx Colostomy - Rectal perforation with colostomy, Hx Hysterectomy, Hx Tonsillectomy. Denies: Hx Mastectomy, Hx Open Heart Surgery, Hx Pacemaker Physical Exam - General General appearance: Appears well In distress: None Notes: PHYSICAL EXAMINATION: GENERAL: Well-appearing with No Acute Distress noted. HEAD: Atraumatic, Normocephalic. EYES: Sclera anicteric, Conjunctiva are pink and moist. ENT: Nares patent. Moist mucous membranes. NECK: Normal range of motion, supple without lymphadenopathy. LUNGS: CTAB and equal. No wheezes rales or rhonchi. HEART: Regular rate and rhythm without murmurs. ABDOMEN: Soft, nontender, normal bowel sounds, no guarding. EXTREMITIES: Normal range of motion, no pitting edema. No cyanosis. BACK: No midline or CVA tenderness. No step-off or deformity. NEUROLOGICAL: Cranial nerves grossly intact. Normal speech. Normal gait. PSYCH: Calm, Cooperative, and answers questions appropriately. Normal mood and affect. SKIN: Warm, Dry, Normal color and Turgor, No obvious lesions or rash noted. Diagnostic Results Laboratory Results: Patient advised at this time they are considered a Person Under Investigation (PUI) for the COVID-19 Coronavirus. They have been made aware it is currently taking 3 to 5 days to receive their results. Patient advised The [facility] Department will call to notify them of a POSITIVE result, and an [facility] steam hand will call to notify them of a NEGATIVE result. Patient Education/Counseling Counseling/Education: Patient presents with upper respiratory symptoms worrisome for possible COVID- 19. Patient does not have symptoms worrisome as an emergency such as difficulty breathing, shortness of breath, chest pain, pressure, confusion or cyanosis. Patient appears suitable for discharge. Patient's vital signs are stable and patient is nontoxic in appearance. Good return precautions have been discussed with patient, patient verbalized understanding and is agreeable with discharge plan of care at this time. Patient provided COVID-19 discharge instructions to include: As a person under investigation for COVID-19, the [facility], division of public health advises you to adhere to the following guidance until your test results are reported to you. If your test result is positive, you will receive additional information from your provider and your local health department at that time. Remain at home until you are cleared by the health provider or public health authorities. Keep a log of visitors to your home, notify any visitors to your home of your isolation status. If you plan to move to a new address or leave the [facility], notify the local health department in your [facility]. Call your doctor or seek care if you have an urgent medical need. Before seeking medical care, call ahead to get instructions from the provider before arriving at the medical office clinic or hospital. Notify them that you are being tested for the virus that causes COVID-19 so that arrangements can be made, as necessary, to prevent transmission to others in the healthcare setting. Next, notify the local health department in your county. If a medical emergency arises and you need to call 911, inform dispatch and the first responders that you are being tested for the virus that causes COVID-19. Next, notify the local health department in your county. Guidance for worsening S/SX: For worsening symptoms, patient has been advised to contact their Primary Care Provider, or go to the nearest Emergency Department. RDC Discharge - Discharge Clinical Impression: COVID-19 Screening URI (upper respiratory infection) Qualifiers: URI type: unspecified URI Qualified Code(s): J06.9 - Acute upper respiratory infection, unspecified Condition: Stable Disposition: Home; Selfcare
== END ==
LOC: RDC 09:33
PROVIDERS: ATTEND Nurse Practitioner Family
DX: U07.1 COVID-19 (principal); J06.9 Acute upper respiratory infection, unspecified; R05 Cough; J02.9 Acute pharyngitis, unspecified; I48.91 Unspecified atrial fibrillation; R43.8 Other disturbances of smell and taste; E03.9 Hypothyroidism, unspecified; Z88.0 Allergy status to penicillin; Z88.1 Allergy status to other antibiotic agents; Z88.6 Allergy status to analgesic agent
CPT/HCPCS: 99202; U0003; G0463; C9803; 87635; 99211